=== PATIENT | female | born 1950 | race Caucasian/White ===

== ENCOUNTER 2020-04-03 07:48 | Outpatient (CLI) | payer OTHER | END 2020-04-03 08:03 | disposition home or self-care (01) | LOC: RX STUDY 07:48 | PROVIDERS: ATTEND Internal Medicine Gastroenterology | DX: R13.19 Other dysphagia (principal) ==

== ENCOUNTER 2020-04-12 07:36 | Outpatient (CLI) | payer OTHER | END 2020-04-12 07:38 | disposition home or self-care (01) | LOC: NUCLEAR 07:36 | PROVIDERS: ATTEND Internal Medicine Gastroenterology | DX: K31.84 Gastroparesis (principal) | CPT/HCPCS: 78264; A9541 ==